=== PATIENT | female | born 1970 | race Caucasian/White ===

== ENCOUNTER 2016-11-29 17:59 | Emergency (ER) | payer MEDICAID ==
[~2016-11-29] VITALS: Ht 172.7 cm; Wt 65.5 kg
[~2016-11-29 17:59] MED LIST: BACL20TA PO
[2016-11-29] MEDS ORDERED: SODIUM CHLORIDE 0.9% 1,000 ML IV ONE (18:56)
[2016-11-29] MEDS ORDERED: ONDANSETRON 2MG/ML, 2ML IVPush ONE (19:00)
[2016-11-29] MEDS ORDERED: SODIUM CHLORIDE 0.9% 1,000ML IVBOLUS ONE (19:00)
[2016-11-29] MEDS ORDERED: SODIUM CHLORIDE FLUSH 10ML SYR IVF ONE (19:00)
[2016-11-29] MEDS ORDERED: PROCHLORPERAZINE 5 MG/ML, 2ML IVPush ONE (19:00)
[2016-11-29] MEDS ORDERED: DIPHENHYDRAMINE 50 MG/ML, 1ML IVPush ONE (19:00)
[2016-11-29 19:17] LABS: HEMATOCRIT 42.4 % (34.6-47.8); HEMOGLOBIN 14.3 g/dL (11.7-16.4); WHITE BLOOD COUNT 9.2 x10^3/uL (3.4-10)
[2016-11-29 19:24] LABS: BLOOD UREA NITROGEN 14 mg/dL (7-18)
[2016-11-29] MEDS ORDERED: ONDANSETRON 2MG/ML, 2ML ONE (19:27)
[2016-11-29] MEDS ORDERED: PROCHLORPERAZINE 5 MG/ML, 2ML ONE (19:27)
[2016-11-29] MEDS ORDERED: DIPHENHYDRAMINE 50 MG/ML, 1ML ONE (19:27)
[2016-11-29 21:22] VITALS: BP 160/78
== END 2016-11-29 21:24 | disposition home or self-care (01) ==
LOC: ED 18:32
DX: G43.011 Migraine without aura, intractable, with status migrainosus (principal); I10 Essential (primary) hypertension
CPT/HCPCS: 36415; 80048; 82040; 85025; 85651; 93005; 96374; 96375; 96376; 99285; J0780; J1200; J2405; J7030

== ENCOUNTER 2017-07-28 15:26 | Emergency (ER) | payer MEDICAID ==
[~2017-07-28] VITALS: Ht 172.7 cm; Wt 66.5 kg
[2017-07-28 15:52] VITALS: BP 167/104
[2017-07-28] MEDS ORDERED: AMLO10TA2 PO (16:35)
[2017-07-28] MEDS ORDERED: LISI-167 PO (16:35)
== END 2017-07-28 17:33 | disposition home or self-care (01) ==
LOC: ED 17:15
DX: M54.2 Cervicalgia (principal); M62.838 Other muscle spasm; I10 Essential (primary) hypertension; G43.909 Migraine, unspecified, not intractable, without status migrainosus; Z90.710 Acquired absence of both cervix and uterus
CPT/HCPCS: 72125; 99284

== ENCOUNTER 2018-03-10 16:13 | Emergency (ER) | payer MEDICAID ==
[~2018-03-10] VITALS: Ht 172.7 cm; Wt 70.0 kg
[~2018-03-10 16:13] MED LIST changes: +AMLO10TA6 PO; +LISI-167 PO
[2018-03-10] MEDS ORDERED: DIAZEPAM 5 MG TABLET ONE (17:17)
[2018-03-10] MEDS ORDERED: KETOROLAC 30 MG/1 ML ONE (17:17)
[2018-03-10] MEDS ORDERED: DOXE10CA PO (17:23)
[2018-03-10] MEDS ORDERED: DIAZEPAM 5 MG TABLET PO ONE (17:30)
[2018-03-10] MEDS ORDERED: KETOROLAC 60 MG/2 ML IM ONE (18:00)
[2018-03-10 20:14] VITALS: BP 122/61
== END 2018-03-10 20:16 | disposition home or self-care (01) ==
LOC: ED 17:48
DX: S29.012A Strain of muscle and tendon of back wall of thorax, initial encounter (principal); S20.219A Contusion of unspecified front wall of thorax, initial encounter; G89.11 Acute pain due to trauma; G43.909 Migraine, unspecified, not intractable, without status migrainosus; Z90.710 Acquired absence of both cervix and uterus; W19.XXXA Unspecified fall, initial encounter; Y93.89 Activity, other specified; Y92.098 Other place in other non-institutional residence as the place of occurrence of the external cause; Y99.8 Other external cause status
CPT/HCPCS: 71101; 71250; 73030; 96372; 99284; J1885